=== PATIENT | male | born 2000 | race Two or more races ===

== ENCOUNTER 2021-10-28 01:04 | Emergency (ER) | payer OTHER ==
[~2021-10-28] VITALS: Ht 175.3 cm; Wt 70.3 kg
== END 2021-10-28 07:17 ==
LOC: ER 01:04
DX: R55 Syncope and collapse (principal); R42 Dizziness and giddiness

== ENCOUNTER 2022-05-26 10:30 | Emergency (ER) | payer OTHER ==
[~2022-05-26] VITALS: Ht 177.8 cm; Wt 68.0 kg
[2022-05-26] MEDS ORDERED: FLONASE ALLERG9.9 ML NASAL (14:39)
[2022-05-26] MEDS ORDERED: SINUS RINSE ST1 EACH NASAL (14:39)
[2022-05-26] MEDS ORDERED: ALLEGRA ALLERGY60 MG PO (14:39)
== END 2022-05-26 15:01 | disposition home or self-care (01) ==
LOC: ER 10:30
DX: R09.82 Postnasal drip (principal); Z20.822 Contact with and (suspected) exposure to COVID-19